=== PATIENT | female | born 1985 ===

== ENCOUNTER 2018-02-04 20:50 | Emergency (ER) | payer OTHER, SELFPAY ==
[2018-02-04 21:09] VITALS: BP 110/64; PULSE 104; RESP 16; TEMP 99.2; O2SAT 99
[2018-02-04] MEDS ORDERED: Sodium Chloride 0.9% 1,000 ML IV STA (22:26)
[2018-02-04 22:52] LABS: VENOUS BLOOD GAS BASE EXCESS -0.7 mmol/L (0.0-2.0); VENOUS BLOOD GAS PCO2 36 mmHg (40-60); VENOUS BLOOD GAS PO2 36 mm/Hg (30-55); VENOUS BLOOD PH 7.42 (7.32-7.43)
--- NOTE | 2018-02-04 23:09 | ED PDOC ---
HPI: General Adult Time Seen by Provider: 02/04/18 21:30 Chief Complaint (Nursing): GI Problem History Per: Patient Additional Complaint(s): Pt. states this morning she woke up with nausea and vomiting (8 episodes). States after the vomiting she developed epigastric pain. Further reports she's also developed diarrhea (4 episodes). Also notes that her mother had similar symptoms 3 days ago which has since resolved. Denies melena, hematochezia, BRBPR , hematemesis, fever, recent travel, cough, congestion. Past Medical History Reviewed: Historical Data, Nursing Documentation, Vital Signs Vital Signs: Last Vital Signs Temp 99.2 F 02/04/18 21:07 Pulse 104 H 02/04/18 21:07 Resp 16 02/04/18 21:07 BP 110/64 02/04/18 21:07 Pulse Ox 99 02/04/18 23:10 - Surgical History Surgical History: - Family History Family History: States: No Known Family Hx - Home Medications Home Medications: Ambulatory Orders Medication Instructions Recorded Naproxen [Naprosyn Tab] 375 mg PO Q8 PRN #21 tab 09/09/16 oxyCODONE/Acetaminophen [Percocet 1 ea PO Q6 PRN #6 tab 09/09/16 5/325 mg Tab] Ibuprofen [Motrin Tab] 800 mg PO Q8 PRN #20 tab 09/29/17 Famotidine [Pepcid] 20 mg PO DAILY PRN #14 tab 02/04/18 Ondansetron ODT [Zofran ODT] 4 mg PO TID #21 odt 02/04/18 - Allergies Allergies/Adverse Reactions: Allergies Allergy/AdvReac Type Severity Reaction Status Date / Time No Known Allergies Allergy Verified 02/04/18 21:07 Review of Systems ROS Statement: Except As Marked, All Systems Reviewed And Found Negative Gastrointestinal: Positive for: Nausea, Vomiting, Abdominal Pain, Diarrhea Physical Exam - Physical Exam Appears: Positive for: Well, Non-toxic, No Acute Distress Skin: Positive for: Normal Color, Warm. Negative for: Rash Eye Exam: Positive for: EOMI, Normal appearance, PERRL ENT: Positive for: Normal ENT Inspection, Other (mucous membranes moist) Neck: Positive for: Normal, Painless ROM Cardiovascular/Chest: Positive for: Regular Rate, Rhythm. Negative for: Tachycardia Respiratory: Positive for: Normal Breath Sounds. Negative for: Respiratory Distress Gastrointestinal/Abdominal: Positive for: Normal Exam, Bowel Sounds, Soft. Negative for: Tenderness Back: Positive for: Normal Inspection. Negative for: L CVA Tenderness, R CVA Tenderness Extremity: Positive for: Normal ROM Neurologic/Psych: Positive for: Alert, Oriented. Negative for: Aphasia, Facial Droop - Laboratory Results Result Diagrams: 02/04/18 23:13 02/04/18 23:13 - ECG O2 Sat by Pulse Oximetry: 99 - Progress ED Course And Treament: Labs ordered. IV NS bolus x 1, zofran 4mg IV, pepcid 20mg IV ordered. 2343 On re-evaluation, pt. reports complete relief of abdominal pain, headache, and nausea. States she is feeling much better. Tolerating PO fluids in ED. Abd remains soft and non-tender. Disposition - Clinical Impression Clinical Impression: Gastroenteritis - Patient ED Disposition Is Patient to be Admitted: No - Disposition Referrals: [facility] [place] [Outside] [facility] [Outside] Disposition: Routine/Home Disposition Time: 23:44 Condition: IMPROVED Additional Instructions: Return to ED immediately if symptoms persist or worsen. Prescriptions: Famotidine [Pepcid] 20 mg PO DAILY PRN #14 tab PRN Reason: Dyspepsia Ondansetron ODT [Zofran ODT] 4 mg PO TID #21 odt Instructions: Gastroenteritis (ED) Forms: [facility] (Sami) Print Language: SETSWANA
[2018-02-04 23:17] LABS: BASO % 0.1 % (0.0-2.0); EOS % 0.2 % (0.0-4.0); HEMOGLOBIN 12.8 g/dL (12.0-16.0); LYMPH # 0.2 K/uL (1.0-4.3); LYMPH % 1.9 % (20.0-40.0); MEAN CELL VOLUME 83.9 fl (81.0-99.0); MEAN CORPUSCULAR HEMOGLOBIN 27.5 pg (27.0-31.0); MEAN CORPUSCULAR HGB CONC 32.8 g/dL (33.0-37.0); MEAN PLATELET VOLUME 9.9 fl (7.2-11.7); MONO # 0.3 K/uL (0.0-0.8); MONO % 2.7 % (0.0-10.0); NEUT # 9.5 K/uL (1.8-7.0); NEUT % 95.1 % (50.0-75.0); NRBC % 0.1 % (0.0-0.0); PLATELET COUNT 184 K/uL (130-400); RBC 4.66 Mil/uL (3.80-5.20); RED CELL DISTRIBUTION WIDTH 13.4 % (11.5-14.5)
[2018-02-04 23:31] LABS: SQUAMOUS EPITHIAL 5 /hpf (0-5); URINE BACTERIA OCC (<OCC); URINE BILIRUBIN NEGATIVE (NEGATIVE); URINE BLOOD SMALL (NEGATIVE); URINE CLARITY CLOUDY (Clear); URINE COLOR YELLOW (YELLOW); URINE GLUCOSE (UA) NEG (Normal); URINE HYALINE CAST 0-2 /hpf (0-2); URINE LEUKOCYTE ESTERASE NEG Leu/uL (Negative); URINE PROTEIN 30 mg/dL (NEGATIVE); URINE UROBILINOGEN 0.2-1.0 mg/dL (0.2-1.0)
[2018-02-04 23:38] LABS: ALB/GLOB RATIO 1.4 (1.0-2.1); ALBUMIN 4.3 g/dL (3.5-5.0); ALT/SGPT 29 U/L (9-52); AST/SGOT 24 U/L (14-36); BLOOD UREA NITROGEN 21 mg/dl (7-17); CALCIUM 9.3 mg/dL (8.4-10.2); GFR AFRICAN-AMERICAN > 60; GFR NON-AFRICAN AMERICAN > 60; LIPASE 29 U/L (23-300)
[2018-02-05 01:31] LABS: ANISOCYTOSIS SLIGHT; BANDS 2 % (0-2); LARGE PLATELETS PRESENT; LYMPHOCYTE 1 % (20-50); MONOCYTE 4 % (0-10); NEUTROPHIL 93 % (42-75); OVALOCYTES SLIGHT; PLATELET ESTIMATE NORMAL (NORMAL); TOTAL CELLS COUNTED 100
== END 2018-02-05 00:05 | disposition home or self-care (01) ==
LOC: H.ER 20:50
DX: K52.9 Noninfective gastroenteritis and colitis, unspecified (principal)
CPT/HCPCS: 80053; 81003; 81025; 82803; 83690; 85025; 96374; 99284; J2765; J7040

== ENCOUNTER 2018-07-07 12:02 | Emergency (ER) | payer SELFPAY ==
[2018-07-07 12:09] VITALS: BP 134/90; PULSE 98; RESP 18; TEMP 98.2; O2SAT 98
--- NOTE | 2018-07-07 12:33 | ED PDOC ---
HPI: Abdomen Time Seen by Provider: 07/07/18 12:11 Chief Complaint (Nursing): Abdominal Pain Chief Complaint (Provider): Abdominal pain in History Per: Patient Additional Complaint(s): 33 yo female, No PMH, presents to ED with complaints of suprapubic abdominal pain x 1 week. Pt reports LMP was May 26, and reports (+) test at home. No UTI like complaints. No medications taken for pain thus far. No vaginal bleeding. Past Medical History Reviewed: Nursing Documentation, Vital Signs Vital Signs: Last Vital Signs Temp 98.2 F 07/07/18 12:08 Pulse 98 H 07/07/18 12:08 Resp 18 07/07/18 12:08 BP 134/90 07/07/18 12:08 Pulse Ox 98 07/07/18 12:33 - Medical History PMH: No Chronic Diseases - Surgical History Surgical History: - Family History Family History: States: No Known Family Hx - Living Arrangements Living Arrangements: With Family - Social History Current smoker - smoking cessation education provided: No Alcohol: None Drugs: Denies - Home Medications Home Medications: Ambulatory Orders Medication Instructions Recorded Naproxen [Naprosyn Tab] 375 mg PO Q8 PRN #21 tab 09/09/16 oxyCODONE/Acetaminophen [Percocet 1 ea PO Q6 PRN #6 tab 09/09/16 5/325 mg Tab] Ibuprofen [Motrin Tab] 800 mg PO Q8 PRN #20 tab 09/29/17 Famotidine [Pepcid] 20 mg PO DAILY PRN #14 tab 02/04/18 Ondansetron ODT [Zofran ODT] 4 mg PO TID #21 odt 02/04/18 - Allergies Allergies/Adverse Reactions: Allergies Allergy/AdvReac Type Severity Reaction Status Date / Time No Known Allergies Allergy Verified 07/07/18 12:08 Review of Systems ROS Statement: Except As Marked, All Systems Reviewed And Found Negative Gastrointestinal: Positive for: Abdominal Pain Physical Exam - Reviewed Nursing Documentation Reviewed: Yes Vital Signs Reviewed: Yes - Physical Exam Appears: Positive for: Well, Non-toxic, No Acute Distress Head Exam: Positive for: ATRAUMATIC, NORMAL INSPECTION, NORMOCEPHALIC Skin: Positive for: Normal Color, Warm, DRY Eye Exam: Positive for: EOMI, Normal appearance, PERRL ENT: Positive for: Normal ENT Inspection Neck: Positive for: Normal, Painless ROM Cardiovascular/Chest: Positive for: Regular Rate, Rhythm Respiratory: Positive for: CNT, Normal Breath Sounds Gastrointestinal/Abdominal: Positive for: Normal Exam, Soft. Negative for: Tenderness Back: Positive for: Normal Inspection Extremity: Positive for: Normal ROM Neurologic/Psych: Positive for: Alert, Oriented - Laboratory Results Result Diagrams: 07/07/18 12:45 - ECG O2 Sat by Pulse Oximetry: 98 Medical Decision Making Medical Decision Making: Pt medicated with Tylenol PO for pain, reports feeling improved on re-eval Beta 4953 CBC and UA resulted WNL US IMPRESSION: A intrauterine gestational sac with yolk sac is identified. The gestational age is at every image at this time less than 6 weeks. The viability of this is indeterminate. Continued follow-up transvaginal pelvic ultrasound imaging attended 14 days. No subchorionic hemorrhage seen. Similar clustered multiple nabothian cysts as above. Pt educated on results and demonstrated full understanding. Importance of follow up was stressed. Pt advised to return to ED if at anytime condition worsnes Disposition - Clinical Impression Clinical Impression: Abdominal pain during , Threatened - Patient ED Disposition Is Patient to be Admitted: No - Disposition [facility] [[facility] Disposition: Routine/Home Disposition Time: 15:26 Condition: STABLE Instructions: Threatened Miscarriage Forms: [employer] (Danish)
[2018-07-07 13:00] LABS: BASO % 0.6 % (0.0-2.0); EOS % 0.4 % (0.0-4.0); HEMOGLOBIN 13.3 g/dL (12.0-16.0); LYMPH # 1.3 K/uL (1.0-4.3); LYMPH % 19.2 % (20.0-40.0); MEAN CELL VOLUME 84.8 fl (81.0-99.0); MEAN CORPUSCULAR HEMOGLOBIN 28.5 pg (27.0-31.0); MEAN CORPUSCULAR HGB CONC 33.6 g/dL (33.0-37.0); MEAN PLATELET VOLUME 9.5 fl (7.2-11.7); MONO # 0.5 K/uL (0.0-0.8); MONO % 7.5 % (0.0-10.0); NEUT # 4.8 K/uL (1.8-7.0); NEUT % 72.3 % (50.0-75.0); RBC 4.65 Mil/uL (3.80-5.20); RED CELL DISTRIBUTION WIDTH 13.3 % (11.5-14.5); WHITE BLOOD COUNT 6.6 K/uL (4.8-10.8)
--- NOTE | 2018-07-07 13:41 | US ---
Date of service: 07/07/2018 HISTORY: pain, 5 -6 w preg LMP 05/26/2018. Beta HCG level 4953 COMPARISON: Transvaginal ultrasound 09/29/2017 TECHNIQUE: Transvaginal FINDINGS: UTERUS: Measures 8.7 x 5.1 x 6.1 cm. Normal in size and appearance. A small intrauterine gestational sac grossly normal in shape is suggested its mean sac diameter is 0.67 cm. A small normal appearing yolk sac is also identified 0.16 cm. At this time no embryonic pole is identified. CERVIX: Multiple clustered nabothian cysts are present these were noted previously - the largest currently is 1.3 x 0.9 x 1.4 cm. The cervical length is 3.6 cm. RIGHT OVARY: Measures 3.8 x 2.6 x 3.4 cm cm. No solid mass. Normal flow. A 1.2 x 1.0 x 1.8 cm benign-appearing cysts is suggested. LEFT OVARY: Measures 2.7 x 1.7 x 2.5 cm. No solid mass. Normal flow. The prior left ovarian simple appearing cyst has resolved. FREE FLUID: No significant free fluid noted. OTHER FINDINGS: None. IMPRESSION: A intrauterine gestational sac with yolk sac is identified. The gestational age is at every image at this time less than 6 weeks. The viability of this is indeterminate. Continued follow-up transvaginal pelvic ultrasound imaging attended 14 days. No subchorionic hemorrhage seen. Similar clustered multiple nabothian cysts as above.
[2018-07-07 13:51] LABS: SQUAMOUS EPITHIAL 14 /hpf (0-5); URINE BILIRUBIN NEGATIVE (NEGATIVE); URINE BLOOD NEGATIVE (NEGATIVE); URINE CLARITY TURBID (Clear); URINE COLOR AMBER (YELLOW); URINE GLUCOSE (UA) NEG (Normal); URINE LEUKOCYTE ESTERASE NEG Leu/uL (Negative); URINE PROTEIN 30 mg/dL (NEGATIVE); URINE UROBILINOGEN 0.2-1.0 mg/dL (0.2-1.0)
[2018-07-07 13:52] LABS: URINE BACTERIA RARE (<OCC)
== END 2018-07-07 19:00 | disposition home or self-care (01) ==
LOC: H.ER 12:02
DX: O20.0 Threatened abortion (principal)

== ENCOUNTER 2018-10-22 14:47 | Emergency (ER) | payer MEDICAID, SELFPAY ==
[2018-10-22 15:39] VITALS: BMI 23.4
[2018-10-22 15:56] VITALS: TEMP 98.1
[2018-10-22 21:17] VITALS: BP 104/82; PULSE 67; O2SAT 100
== END 2018-10-22 16:55 | disposition home or self-care (01) ==
LOC: H.EROB2 14:47
DX: O26.92 Pregnancy related conditions, unspecified, second trimester (principal); R10.2 Pelvic and perineal pain; Z3A.20 20 weeks gestation of pregnancy; Z87.59 Personal history of other complications of pregnancy, childbirth and the puerperium

== ENCOUNTER → 2019-02-10 | Emergency (ER) | payer MEDICAID ==
[2019-02-11 00:42] VITALS: BP 103/63; PULSE 80; RESP 16; TEMP 98.7
--- NOTE | 2019-02-11 08:55 | OBHP ---
Datetime: 02/10/2019 17:35 IP Adm Impression: , intrauterine IP Admit Plan: Observation/Evaluation Admit Comment, IP Provider: PNP: Bart Sylvester 33 y/o @ 36.3 wks as noted on 1st trimester ultrasound (records incomplete, LMP unknown, REBA not doc in records) here c/o decreased FM since 11am today. Denies lof, vb, ctx, f/c/n/v/cp/sob or li ghtheadedness. labs: O+, antiboby neg, HBsAg-neg, G/C neg, HIV _ RPR-nonreactive OBGYNHx: , 2005- csection bc of failure to dilate; proteinuria in current PMH: denies Meds: PNV Allergies: NKA Surghx: denies Famhx: denies Sochx: denies etoh, cigarette or elicit drug use ROS: 12 points reviewed and are neg unless otherwise mentioned in HPI PE: Cardio: RRR Lungs: cta b/l Abd: gravid, soft, nontender, no rigidity, no guarding [place]: reassuring, reactive Ext: nonedematous A/P: 33 y/o @ 36.3 wk c/o decreased FM. -FHR reassuring _ reactive Case discussed with Dr. Osborn -Kendal Lee, PGY-1 Extremities - PN: Normal Abdomen - PN: Normal Lungs - PN: Normal Heart - PN: Normal General - PN: Normal Gestation - Est Wks by US: 36.3 IP Hx Assessment: The History has been Updated Vital Signs Provider: Reviewed; Within Normal Limits IP Chief Complaint: Decreased movement NICHD Variability Prov Fetus A: Moderate 6-25bpm NICHD Accel Fetus A IP Provider: [id number] FHR Category Provider Fetus A: Category I NICHD Decel Fetus A IP Provider: None Datetime: 10/22/2018 15:56 IP Chief Complaint Other: cramping Thyroid - PN: Not Done FHR - Baseline A Provider: [id number] Comments, ACOG Physical Exam: Abdomen: fundus palpable just below umbilicus, no tenderness to palpat ion in either lower quadrant or in the suprapubic region
== END | disposition home or self-care (01) ==
LOC: H.EROB2 16:50
DX: O36.8131 Decreased fetal movements, third trimester, fetus 1 (principal); Z3A.36 36 weeks gestation of pregnancy